=== PATIENT | male | born 2000 | race Two or more races ===

== ENCOUNTER 2018-06-27 02:12 | Emergency (ER) | payer OTHER ==
[~2018-06-27] VITALS: Ht 165.1 cm; Wt 59.0 kg
== END 2018-06-28 21:05 | disposition home or self-care (01) ==
LOC: ER 02:12
DX: F19.10 Other psychoactive substance abuse, uncomplicated (principal); F32.9 Major depressive disorder, single episode, unspecified; F41.9 Anxiety disorder, unspecified